=== PATIENT | female | born 1980 | race Caucasian/White ===

== ENCOUNTER 2017-12-10 17:54 | Inpatient (IN) | payer MEDICAID ==
[~2017-12-10] VITALS: Ht 172.7 cm; Wt 110.0 kg
[2017-12-10] MEDS ORDERED: DIPHENHYDRAMINE 50 MG CAPSULE PO STA (18:12)
[2017-12-10] MEDS ORDERED: SODIUM CHLORIDE FLUSH 10ML SYR IVF ONE (18:30)
[2017-12-10] MEDS ORDERED: AMPICILLIN/SULBACTAM 3 GM in SODIUM CHLORIDE 0.9% 100 ML IV ONE (18:30)
[2017-12-10] MEDS ORDERED: FAMOTIDINE 20 MG TABLET PO ONE (18:30)
[2017-12-10] MEDS ORDERED: VANCOMYCIN PER PHARMACY MC ONE (18:30)
[2017-12-10 18:52] LABS: BASOPHILS # (AUTO) 0.09 x10^3/uL (0-0.1); BASOPHILS % (AUTO) 1 % (0-1); EOSINOPHILS # (AUTO) 0.34 x10^3/uL (0-0.4); EOSINOPHILS % (AUTO) 4 % (1-7); LYMPHOCYTES % (AUTO) 23 % (22-44); MD NO; MEAN CORPUSCULAR HEMOGLOBIN 25.8 pg (27.0-34.8); MEAN CORPUSCULAR VOLUME 78.1 fL (80-100); MEAN PLATELET VOLUME 7.5 fL (7.4-10.4); MONOCYTES # (AUTO) 0.61 x10^3/uL (0.2-0.8); MONOCYTES % (AUTO) 7 % (2-9); NEUTROPHILS # (AUTO) 5.85 x10^3/uL (1.8-6.8); NEUTROPHILS % (AUTO) 66 % (42-75); PLATELET COUNT 286 x10^3/uL (130-400); RED BLOOD COUNT 4.22 x10^6/uL (3.82-5.3)
[2017-12-10 18:56] LABS: HCT (SEDRATE) 32.9 % (34.6-47.8)
[2017-12-10 18:59] LABS: ALANINE AMINOTRANSFERASE 50 U/L (12-78); ANION GAP 10 mmol/L (5-15); CALCIUM 8.2 mg/dL (8.5-10.1); CHLORIDE 110 mmol/L (98-107); CREATININE 1.16 mg/dL (0.55-1.02)
[2017-12-10] MEDS ORDERED: VANCOMYCIN 2,000 MG in SODIUM CHLORIDE 0.9% 500 ML IV ONE (19:00)
[2017-12-10 19:03] LABS: INTERNATIONAL NORMALIZED RATIO 0.93 (0.93-1.1); PROTHROMBIN TIME 9.7 Seconds (9.6-11.5)
[2017-12-10] MEDS ORDERED: FAMOTIDINE 20 MG TABLET ONE (19:03)
[2017-12-10] MEDS ORDERED: DIPHENHYDRAMINE 25 MG CAPSULE ONE (19:03)
[2017-12-10 19:06] LABS: ALKALINE PHOSPHATASE 119 U/L (45-117); BILIRUBIN,TOTAL 0.5 mg/dL (0.2-1.0); TOTAL PROTEIN 6.7 g/dL (6.4-8.2)
[2017-12-10] MEDS ORDERED: VANCOMYCIN PER PHARMACY MC PRN (20:00)
[2017-12-10] MEDS ORDERED: ONDANSETRON 2MG/ML, 2ML IVPush PRN (20:00)
[2017-12-10] MEDS ORDERED: POLYETHYLENE GLYCOL 17 GM PACKET PO PRN (20:00)
[2017-12-10] MEDS ORDERED: ENOXAPARIN 40 MG/0.4 ML SQ SCH (20:00)
[2017-12-10] MEDS ORDERED: hydrALAzine 20 MG/ML, 1ML IVPush PRN (20:00)
[2017-12-10 20:24] LABS: % IRON SATURATION 5 % (20-55); IRON LEVEL 20 mcg/dL (50-170); TOTAL IRON BINDING CAPACITY 387 mcg/dL (250-450)
[2017-12-10] MEDS: ACETAMINOPHEN 325 MG TABLET PO PRN (21:24)
[2017-12-10] MEDS: SODIUM CHLORIDE 0.9% 1,000 ML IV SCH (21:24)
[2017-12-10] MEDS ORDERED: PHARMACOKINETIC CONSULTATION MC ONE (21:30)
[2017-12-10] MEDS ORDERED: PHARMACOKINETIC MONITORING MC PRN (21:30)
[2017-12-11 01:18] VITALS: BP 114/69
[2017-12-11] MEDS: AMPICILLIN/SULBACTAM 3 GM in SODIUM CHLORIDE 0.9% 100 ML IV SCH ×3 (02:29→18:18)
[2017-12-11 05:44] LABS: BASOPHILS # (AUTO) 0.04 x10^3/uL (0-0.1); BASOPHILS % (AUTO) 1 % (0-1); EOSINOPHILS # (AUTO) 0.36 x10^3/uL (0-0.4); EOSINOPHILS % (AUTO) 5 % (1-7); LYMPHOCYTES # (AUTO) 2.94 x10^3/uL (1-3.4); LYMPHOCYTES % (AUTO) 39 % (22-44); MD NO; MEAN CORPUSCULAR HGB CONC 33.1 g/dL (32.4-35.8); MEAN CORPUSCULAR VOLUME 78.5 fL (80-100); MEAN PLATELET VOLUME 7.5 fL (7.4-10.4); MONOCYTES # (AUTO) 0.73 x10^3/uL (0.2-0.8); MONOCYTES % (AUTO) 10 % (2-9); NEUTROPHILS # (AUTO) 3.55 x10^3/uL (1.8-6.8); NEUTROPHILS % (AUTO) 47 % (42-75); PLATELET COUNT 251 x10^3/uL (130-400); RED BLOOD COUNT 3.85 x10^6/uL (3.82-5.3); RED CELL DISTRIBUTION WIDTH 17.6 % (9.6-15.2)
[2017-12-11] MEDS: ACETAMINOPHEN 325 MG TABLET PO PRN (05:46)
[2017-12-11 05:57] LABS: ANION GAP 7 mmol/L (5-15); CALCIUM 8.3 mg/dL (8.5-10.1); CHLORIDE 112 mmol/L (98-107); CREATININE 0.74 mg/dL (0.55-1.02)
[2017-12-11 07:17] VITALS: BP 115/67
[2017-12-11] MEDS: SODIUM CHLORIDE 0.9% 1,000 ML IV SCH (10:24)
[2017-12-11 13:40] VITALS: BP 117/73
[2017-12-11 20:49] VITALS: BP 110/41
[2017-12-11] MEDS: VANCOMYCIN 2,000 MG in SODIUM CHLORIDE 0.9% 500 ML IV SCH (22:14)
[2017-12-12] MEDS: AMPICILLIN/SULBACTAM 3 GM in SODIUM CHLORIDE 0.9% 100 ML IV SCH ×3 (02:22→18:20)
[2017-12-12 04:22] VITALS: BP 103/64
[2017-12-12 05:39] LABS: BASOPHILS # (AUTO) 0.08 x10^3/uL (0-0.1); BASOPHILS % (AUTO) 1 % (0-1); EOSINOPHILS # (AUTO) 0.37 x10^3/uL (0-0.4); EOSINOPHILS % (AUTO) 5 % (1-7); LYMPHOCYTES # (AUTO) 2.72 x10^3/uL (1-3.4); LYMPHOCYTES % (AUTO) 38 % (22-44); MD NO; MEAN CORPUSCULAR HEMOGLOBIN 25.1 pg (27.0-34.8); MEAN CORPUSCULAR HGB CONC 32.1 g/dL (32.4-35.8); MEAN CORPUSCULAR VOLUME 78.2 fL (80-100); MEAN PLATELET VOLUME 7.4 fL (7.4-10.4); MONOCYTES # (AUTO) 0.57 x10^3/uL (0.2-0.8); MONOCYTES % (AUTO) 8 % (2-9); NEUTROPHILS # (AUTO) 3.51 x10^3/uL (1.8-6.8); NEUTROPHILS % (AUTO) 48 % (42-75); PLATELET COUNT 278 x10^3/uL (130-400); RED BLOOD COUNT 4.09 x10^6/uL (3.82-5.3); RED CELL DISTRIBUTION WIDTH 17.8 % (9.6-15.2)
[2017-12-12 05:53] LABS: ANION GAP 6 mmol/L (5-15); CALCIUM 8.6 mg/dL (8.5-10.1); CHLORIDE 109 mmol/L (98-107); CREATININE 0.73 mg/dL (0.55-1.02)
[2017-12-12 08:30] VITALS: BP 118/68
[2017-12-12 14:30] VITALS: BP 107/63
[2017-12-12 19:52] VITALS: BP 132/75
[2017-12-12] MEDS: VANCOMYCIN 2,000 MG in SODIUM CHLORIDE 0.9% 500 ML IV SCH (20:17)
[2017-12-13 02:12] VITALS: BP 129/75
[2017-12-13] MEDS: AMPICILLIN/SULBACTAM 3 GM in SODIUM CHLORIDE 0.9% 100 ML IV SCH ×3 (02:16→19:12)
[2017-12-13 07:34] VITALS: BP 129/82
[2017-12-13 13:00] VITALS: BP 119/80
[2017-12-13 19:06] VITALS: BP 123/74
[2017-12-13] MEDS: VANCOMYCIN 2,000 MG in SODIUM CHLORIDE 0.9% 500 ML IV SCH (22:23)
[2017-12-14 01:32] VITALS: BP 121/78
[2017-12-14] MEDS: AMPICILLIN/SULBACTAM 3 GM in SODIUM CHLORIDE 0.9% 100 ML IV SCH ×2 (02:47→11:18)
[2017-12-14 06:11] LABS: ANION GAP 7 mmol/L (5-15); CALCIUM 8.9 mg/dL (8.5-10.1); CHLORIDE 106 mmol/L (98-107); CREATININE 0.79 mg/dL (0.55-1.02)
[2017-12-14 06:44] LABS: HCT (SEDRATE) 36.2 % (34.6-47.8)
[2017-12-14 06:57] VITALS: BP 127/80
[2017-12-14 07:18] LABS: MD YES
[2017-12-14 08:54] LABS: MEAN CORPUSCULAR VOLUME 77.6 fL (80-100); RED BLOOD COUNT 4.67 x10^6/uL (3.82-5.3)
[2017-12-14 08:55] LABS: BAND#(MANUAL) 0.16 x10^3/uL; BANDS%(MANUAL) 2 % (0-7); LYMPH#(MANUAL) 3.69 x10^3/uL (1-3.4); LYMPHS% (MANUAL) 45 % (22-44); MEAN CORPUSCULAR HEMOGLOBIN 25.1 pg (27.0-34.8); MEAN CORPUSCULAR HGB CONC 32.3 g/dL (32.4-35.8); MEAN PLATELET VOLUME 7.9 fL (7.4-10.4); PLATELET COUNT 251 x10^3/uL (130-400); RED CELL DISTRIBUTION WIDTH 17.7 % (9.6-15.2); SEG#(MANUAL) 2.95 x10^3/uL (1.8-6.8); SEGS% (MANUAL) 36 % (42-75)
[2017-12-14 08:56] LABS: MONOS#(MANUAL) 0.66 x10^3/uL (0.3-2.7); MONOS% (MANUAL) 8 % (2-9)
[2017-12-14 09:04] LABS: EOS#(MANUAL) 0.74 x10^3/uL (0.0-0.4); EOS% (MANUAL) 9 % (1-7)
[2017-12-14 09:05] LABS: <PLATELET ESTIMATE> ADEQUATE; <PLT MORPHOLOGY> NORMAL PLT MORPH
[2017-12-14 09:06] LABS: ANISOCYTOSIS 1+
[2017-12-14] MEDS ORDERED: VANCOMYCIN 2,000 MG in SODIUM CHLORIDE 0.9% 500 ML IV SCH (16:30)
[2017-12-14] MEDS ORDERED: FERROUS SULFATE 325 MG TABLET PO SCH (17:00)
== END 2017-12-14 14:59 | disposition left against medical advice (07) | DRG 602 ==
LOC: ED 19:24 → 3NE 19:29 → SUATTDRO 19:45 → ED 20:05
PROVIDERS: ADMIT Hospitalist; ATTEND Hospitalist
DX: L03.114 Cellulitis of left upper limb (principal); E43 Unspecified severe protein-calorie malnutrition; I47.2 Ventricular tachycardia; D50.9 Iron deficiency anemia, unspecified; E66.01 Morbid (severe) obesity due to excess calories; F12.90 Cannabis use, unspecified, uncomplicated; F15.90 Other stimulant use, unspecified, uncomplicated; L29.9 Pruritus, unspecified; F17.210 Nicotine dependence, cigarettes, uncomplicated; F19.10 Other psychoactive substance abuse, uncomplicated; Z90.49 Acquired absence of other specified parts of digestive tract; Z88.5 Allergy status to narcotic agent; Z68.36 Body mass index [BMI] 36.0-36.9, adult; Z82.5 Family history of asthma and other chronic lower respiratory diseases; Z98.51 Tubal ligation status
CPT/HCPCS: 36415; 80048; 80053; 80202; 83540; 83550; 83605; 83735; 84100; 84145; 85025; 85610; 85651; 85730; 86140; 86141; 87040; 99285; J0295; J1650; J3370; J7030; J7040

== ENCOUNTER 2018-03-25 12:20 | Emergency (ER) | payer MEDICAID ==
[~2018-03-25] VITALS: Ht 172.7 cm; Wt 107.0 kg
[2018-03-25 12:23] VITALS: BP 137/88
[2018-03-25] MEDS ORDERED: IBUPROFEN 800 MG TABLET ONE (12:44)
[2018-03-25] MEDS ORDERED: IBUPROFEN 200 MG TABLET PO ONE (13:00)
== END 2018-03-25 13:26 | disposition home or self-care (01) ==
LOC: ED 13:20
DX: M25.461 Effusion, right knee (principal); F17.200 Nicotine dependence, unspecified, uncomplicated; Z88.5 Allergy status to narcotic agent
CPT/HCPCS: 99284

== ENCOUNTER 2018-05-15 17:42 | Emergency (ER) | payer MEDICAID | END 2018-05-15 17:48 | disposition left against medical advice (07) | LOC: ED 17:42 | DX: N93.9 Abnormal uterine and vaginal bleeding, unspecified (principal); Z53.21 Procedure and treatment not carried out due to patient leaving prior to being seen by health care provider ==

== ENCOUNTER 2020-12-26 10:44 | Emergency (ER) | payer MEDICAID ==
[~2020-12-26] VITALS: Ht 172.7 cm; Wt 127.2 kg
[2020-12-26] MEDS ORDERED: KETOROLAC 30 MG/1 ML IVPush ONE (12:00)
[2020-12-26] MEDS ORDERED: SODIUM CHLORIDE 0.9% 1,000ML IVBOLUS ONE (12:00)
[2020-12-26] MEDS ORDERED: KETOROLAC 30 MG/1 ML ONE (12:06)
[2020-12-26 12:24] LABS: BASOPHILS % (AUTO) 1 % (0-1); EOSINOPHILS % (AUTO) 16 % (1-7); LYMPHOCYTES % (AUTO) 25 % (22-44); MEAN CORPUSCULAR HEMOGLOBIN 23.8 pg (27.0-34.8); MEAN CORPUSCULAR HGB CONC 31.8 g/dL (32.4-35.8); MONOCYTES % (AUTO) 10 % (2-9); NEUTROPHILS % (AUTO) 49 % (42-75); PLATELET COUNT 217 x10^3/uL (130-400); RED BLOOD COUNT 4.75 x10^6/uL (3.82-5.3); RED CELL DISTRIBUTION WIDTH 19.9 % (9.6-15.2)
[2020-12-26 12:34] LABS: ALANINE AMINOTRANSFERASE 26 U/L (12-78); ALBUMIN 2.6 g/dL (3.4-5.0); ANION GAP 6 mmol/L (5-15); C-REACTIVE PROTEIN, QUANT 0.18 mg/dL (0.02-0.49); CALCIUM 7.9 mg/dL (8.5-10.1); CHLORIDE 111 mmol/L (98-107); CREATININE 0.66 mg/dL (0.55-1.02)
[2020-12-26 12:36] LABS: ALKALINE PHOSPHATASE 147 U/L (45-117); BILIRUBIN,TOTAL 0.3 mg/dL (0.2-1.0)
[2020-12-26] MEDS ORDERED: HYDROmorphone 2 MG/ML, 1ML ONE (13:09)
[2020-12-26] MEDS ORDERED: OMNIPAQUE 350 MG/ML, 75ML BOTTLE ONE (13:21)
[2020-12-26] MEDS ORDERED: HYDROmorphone 2 MG/ML, 1ML IVPush PRN (13:30)
--- NOTE | 2020-12-26 13:46 | NUR ---
pt sleeping in bed. appears in no acute distress after pain medication
[2020-12-26 14:10] VITALS: BP 132/72
[2020-12-27] MEDS ORDERED: ALBU90AE2 PEG (11:57)
[2020-12-27] MEDS ORDERED: ACID1TAB7 PO (11:57)
== END 2020-12-26 14:12 | disposition home or self-care (01) ==
LOC: ED 11:36
DX: J18.9 Pneumonia, unspecified organism (principal); R07.89 Other chest pain; Z20.822 Contact with and (suspected) exposure to COVID-19; E66.9 Obesity, unspecified; Z68.41 Body mass index [BMI] 40.0-44.9, adult; Z90.49 Acquired absence of other specified parts of digestive tract; Z87.891 Personal history of nicotine dependence; Z88.5 Allergy status to narcotic agent
CPT/HCPCS: 36415; 71045; 71275; 80053; 83605; 84145; 85025; 86140; 87040; 93005; 96361; 96374; 96375; 99285; J1170; J1885; J7030; Q9967; U0003; U0005

== ENCOUNTER 2020-12-26 17:55 | Observation (INO) | payer MEDICAID ==
[~2020-12-26] VITALS: Ht 172.7 cm; Wt 128.7 kg
--- NOTE | 2020-12-26 18:06 | NUR ---
From triage to room 37, pt unable to speak full sentence, diaphoretic, HR 130. Seen by PAC at triage as well.
[2020-12-26] MEDS ORDERED: ALBUTEROL/IPRATROPIUM 2.5MG/0.5MG, 3 ML ONE (18:24)
[2020-12-26] MEDS ORDERED: SODIUM CHLORIDE FLUSH 10ML SYR IVF ONE (18:30)
[2020-12-26] MEDS ORDERED: ALBUTEROL/IPRATROPIUM 2.5MG/0.5MG, 3 ML NPPB ONE (18:30)
[2020-12-26 18:39] LABS: ALBUMIN 2.7 g/dL (3.4-5.0); ANION GAP 7 mmol/L (5-15); CALCIUM 8.5 mg/dL (8.5-10.1); CHLORIDE 113 mmol/L (98-107)
[2020-12-26 18:42] LABS: ALANINE AMINOTRANSFERASE 26 U/L (12-78); ALKALINE PHOSPHATASE 160 U/L (45-117); BILIRUBIN,TOTAL 0.2 mg/dL (0.2-1.0); CREATININE 0.77 mg/dL (0.55-1.02)
--- NOTE | 2020-12-26 18:48 | NUR ---
report to salma liu
[2020-12-26 19:10] LABS: MEAN CORPUSCULAR HEMOGLOBIN 23.6 pg (27.0-34.8); MEAN CORPUSCULAR HGB CONC 31.5 g/dL (32.4-35.8); MEAN PLATELET VOLUME 7.2 fL (7.4-10.4); PLATELET COUNT 215 x10^3/uL (130-400); RED CELL DISTRIBUTION WIDTH 20.2 % (9.6-15.2)
--- NOTE | 2020-12-26 19:10 | NUR ---
FIRST CONTACT WITH PATIENT. PATIENT C/O OF 11/26 PAIN IN THE BACK OF HER HEAD. MD AWARE. VSS OTHERWISE. BED IN LOW POSITION. CALL TERESA IN REACH. PROVIDED BLANKET REQUESTED. WILL CONTINUE TO MONITOR.
[2020-12-26] MEDS ORDERED: KETOROLAC 60 MG/2 ML ONE (19:16)
[2020-12-26] MEDS ORDERED: KETOROLAC 30 MG/1 ML IM ONE (19:30)
[2020-12-26 19:55] LABS: BASOS#(MANUAL) 0.17 x10^3/uL (0-0.1); BASOS% (MANUAL) 2 % (0-1); EOS#(MANUAL) 0.87 x10^3/uL (0.0-0.4); EOS% (MANUAL) 10 % (1-7); LYMPH#(MANUAL) 1.65 x10^3/uL (1-3.4); LYMPHS% (MANUAL) 19 % (22-44); MONOS#(MANUAL) 0.87 x10^3/uL (0.3-2.7); MONOS% (MANUAL) 10 % (2-9); SEG#(MANUAL) 5.13 x10^3/uL (1.8-6.8); SEGS% (MANUAL) 59 % (42-75)
[2020-12-26 19:56] LABS: <PLATELET ESTIMATE> ADEQUATE; <PLT MORPHOLOGY> NORMAL PLT MORPH; ANISOCYTOSIS 1+
[2020-12-26] MEDS ORDERED: ALBUTEROL 0.5%, 20ML NPPB SCH (21:00)
[2020-12-26] MEDS ORDERED: SODIUM CHLORIDE 0.9% 1,000 ML IV ONE (21:00)
[2020-12-26] MEDS ORDERED: ALBUTEROL SULFATE 2.5 MG/3 ML ONE (21:01)
[2020-12-26] MEDS ORDERED: LABETALOL 5MG/ML, 20ML IVPush PRN (21:30)
[2020-12-26] MEDS ORDERED: MELATONIN 5 MG TABLET PO PRN (21:30)
[2020-12-26] MEDS ORDERED: ONDANSETRON 2MG/ML, 2ML IVPush PRN (21:30)
--- NOTE | 2020-12-26 21:55 | NUR ---
REPORT GIVEN TO CRISTINO BASS
[2020-12-26 22:48] VITALS: BP 137/85
[2020-12-26] MEDS: ACETAMINOPHEN 325 MG TABLET PO PRN (22:50)
[2020-12-26] MEDS: ALBUTEROL SULFATE 2.5 MG/3 ML NPPB SCH (22:57)
[2020-12-26] MEDS ORDERED: AZITHROMYCIN 500 MG in SODIUM CHLORIDE 0.9% 250 ML IV SCH (23:00)
[2020-12-26] MEDS ORDERED: ENOXAPARIN 30 MG/0.3 ML SQ SCH (23:00)
[2020-12-27 00:32] LABS: TROPONIN I < 0.015 ng/mL (0.000-0.045)
[2020-12-27 02:14] VITALS: BP 134/85
[2020-12-27] MEDS: ALBUTEROL SULFATE 2.5 MG/3 ML NPPB SCH ×4 (02:34→14:20)
[2020-12-27] MEDS: ACETAMINOPHEN 325 MG TABLET PO PRN (04:19)
[2020-12-27 04:50] LABS: MEAN CORPUSCULAR HEMOGLOBIN 23.7 pg (27.0-34.8); MEAN CORPUSCULAR HGB CONC 31.9 g/dL (32.4-35.8); MEAN PLATELET VOLUME 6.9 fL (7.4-10.4); PLATELET COUNT 200 x10^3/uL (130-400); RED BLOOD COUNT 4.46 x10^6/uL (3.82-5.3); RED CELL DISTRIBUTION WIDTH 19.5 % (9.6-15.2)
[2020-12-27 04:58] LABS: ANION GAP 8 mmol/L (5-15); CHLORIDE 111 mmol/L (98-107); CREATININE 0.75 mg/dL (0.55-1.02)
[2020-12-27 05:02] LABS: TROPONIN I < 0.015 ng/mL (0.000-0.045)
[2020-12-27 05:27] LABS: <PLATELET ESTIMATE> ADEQUATE; <PLT MORPHOLOGY> NORMAL PLT MORPH; ANISOCYTOSIS 1+; BAND#(MANUAL) 0.15 x10^3/uL; BANDS%(MANUAL) 2 % (0-7); BASOS#(MANUAL) 0.08 x10^3/uL (0-0.1); BASOS% (MANUAL) 1 % (0-1); EOS#(MANUAL) 0.08 x10^3/uL (0.0-0.4); EOS% (MANUAL) 1 % (1-7); LYMPH#(MANUAL) 1.52 x10^3/uL (1-3.4); LYMPHS% (MANUAL) 20 % (22-44); MONOS#(MANUAL) 0.23 x10^3/uL (0.3-2.7); MONOS% (MANUAL) 3 % (2-9); SEG#(MANUAL) 5.55 x10^3/uL (1.8-6.8); SEGS% (MANUAL) 73 % (42-75)
[2020-12-27 06:55] VITALS: BP 151/72
[2020-12-27] MEDS ORDERED: ACETAMINOPHEN 325 MG TABLET PO PRN (08:30)
[2020-12-27] MEDS ORDERED: FAMOTIDINE 20 MG TABLET PO SCH (09:00)
[2020-12-27] MEDS ORDERED: LACTOBACILLUS CHEW TABLET PO SCH (09:00)
[2020-12-27] MEDS ORDERED: HEPARIN 5,000 UNITS/ML, 1ML SQ SCH (09:00)
[2020-12-27] MEDS ORDERED: ACID1TAB7 PO (11:57)
[2020-12-27] MEDS ORDERED: ALBU90AE2 PEG (11:57)
[2020-12-27 12:36] VITALS: BP 135/75
== END 2020-12-27 15:41 | disposition home or self-care (01) ==
LOC: ED 18:21 → EDIP 20:47 → INTOOBSV 20:47 → 4WST 22:36
PROVIDERS: ADMIT Family Medicine; ATTEND Internal Medicine
DX: J45.901 Unspecified asthma with (acute) exacerbation (principal); J98.4 Other disorders of lung; I10 Essential (primary) hypertension; R07.89 Other chest pain; R06.89 Other abnormalities of breathing; E66.01 Morbid (severe) obesity due to excess calories; Z87.891 Personal history of nicotine dependence; Z86.16 Personal history of COVID-19; Z90.710 Acquired absence of both cervix and uterus; Z79.899 Other long term (current) drug therapy
CPT/HCPCS: 36415; 71045; 80048; 80053; 83605; 83880; 84145; 84484; 85025; 85379; 93005; 94640; 96361; 96365; 96372; 99291; G0378; J0456; J1644; J1650; J1885; J7030; J7050; J7512; J7613